=== PATIENT | female | born 1930 | race Caucasian/White ===

== ENCOUNTER 2016-10-18 20:35 | Inpatient (IN) | payer OTHER, MEDICARE ==
[~2016-10-18] VITALS: Ht 167.6 cm; Wt 67.1 kg
--- NOTE | 2016-10-18 21:32 | ED NECK/BACK PAIN COMPLAINT ---
See Addendum History of Present Illness General Chief Complaint: General Adult Stated Complaint: BIBA BACK AND HIP PAIN Source: patient Exam Limitations: no limitations Vital Signs & Intake/Output Vital Signs & Intake/Output Vital Signs Date Time Temp Pulse Resp B/P B/P Pulse O2 O2 Flow FiO2 Mean Ox Delivery Rate 10/19 2035 178/90 ED Intake and Output 10/19 0000 10/18 1200 Intake Total 0 Output Total Balance 0 Intake, Oral 0 Patient 148 lb Weight Weight Estimated Measurement Method Allergies Coded Allergies: MDX - Penicillin (Penicillin) (RASH 12/20/13) MDX - Sulfonamide (Sulfonamide) (RASH 12/20/13) Triage Note: PT BIBA FROM HOME WITH COMPLAINTS OF LEFT HIP PAIN AND BACK PAIN. PT HAS HISTORY OF SCIATICA AND HIP SURGERY, BUT DENIES ANY RECENT TRAUMA. PT ARRIVES ALERT BUT FORGETFUL TO WHEN SHE LAST TOOK HER MEDICATIONS. PT HAS HOME HEALTH AIDE AT HOME BUT WOULD LIKE TO LOOK INTO ASSISTED LIVING FACILITIES. Triage Nurses Notes Reviewed? yes Onset: Gradual Duration: constant, getting worse Timing: recent history Quality/Severity: severe Location: paraspinous muscles Radiation: none HPI: Patient is a 86-year-old female with a past medical history of Parkinson's, chronic back,SCIATICA and the left hip pain status post remote history of left hip replacement performed by Dr. MARTINEZ, anxiety, mood disorder who presents emergency room brought in by ambulance for concerns of lumbar spine pain and left hip pain. Patient states that she has chronic left hip pain and low back pain and scoliosis where she uses a walker for assistance with ambulation where she states that today the aid presented and helped her at her private residence where she lives alone however she states that she lied down and uncomfortable position and was unable to get out of bed because of the pain to her hip and her back. Patient needed a of her neighbors to lift her up however they were concerned of patient's well-being and advised patient to present to the emergency room for further evaluation treatment. Patient denies any trauma denies any recent falls. Patient denies any fever chills headache abdominal pain nausea vomiting dysuria hematuria shortness of breath cough chest pain. She does not recall the last tramadol she took last bowel movement was 3 days ago (MARGARETH TRINIDAD) Past History Travel History Traveled to [place] past 21 day No Medical History Any Pertinent Medical History? see below for history Neurological: Parkinson's disease Musculoskeletal: chronic back pain, sciatica Psychiatric: anxiety Surgical History Surgical History: LEFT HIP REPLACEMENT Psychosocial History What is your primary language Maori Tobacco Use: Never used ETOH Use: denies use Illicit Drug Use: denies illicit drug use Family History Hx Contributory? No (MARGARETH TRINIDAD) Review of Systems Review of Systems Constitutional: Reports: see HPI. Eyes: Reports: no symptoms. Ears, Nose, Throat, Mouth: Reports: no symptoms. Respiratory: Reports: no symptoms. Cardiovascular: Reports: no symptoms. Gastrointestinal/Abdominal: Reports: no symptoms. Musculoskeletal: Reports: see HPI, back pain, joint pain, joint swelling. Skin: Reports: no symptoms. Neurological/Psychological: Reports: no symptoms. All Other Systems: Reviewed and Negative (MARGARETH TRINIDAD) Physical Exam Physical Exam General Appearance: no apparent distress, alert, comfortable Neck: normal inspection, supple Comments: HEENT: Normal EENT exam, extraocular motion intact, no nystagmus. Pupils equally round and reactive to light and accommodation. Nose is atraumatic. External auditory canal and Tympanic membranes clear. Pharynx normal. No swelling or edema. Neck: Supple, no lymphadenopathy, normal range of motion without pain or tenderness Back: Noted scoliosis and right lateral muscular point tenderness noted no rash no vesicles Cardiovascular: Regular rate and rhythms no murmurs rubs or gallops, normal JVP Respiratory: Chest nontender. No respiratory distress.breath sounds clear to auscultation bilaterally Abdomen: Soft, nontender nondistended, no appreciable organomegaly. Normal bowel sounds. No ascites Extremity: No edema, no calf tenderness to palpation, normal and equal pulses. Left hip generalized point tenderness noted patient able to perform straight leg raise right knee normal inspection nontender Bilateral lower extremity dermatomes intact pedal pulse +2 Neuro: Alert oriented x3, motor sensory normal, Skin: No appreciable rash on exposed skin, skin is warm and dry. Psych: Mood and affect is normal, memory and judgment is normal. (MARGARETH TRINIDAD) Progress Differential Diagnosis: AAA, aortic dissection, C spine injury, carotid dissection, cauda equina syn, herniated disc, myofascial strain, pyelo/UTI, sciatica, spinal cord inj, thoracic outlet syn, T/L spine injury, ureterolithiasis Plan of Care: Orders Procedure Date/time Status Heart Healthy Diet 10/19 B Active PT Evaluate & Treat 10/19 0700 Active CASE MANAGEMENT CONSULT 10/19 0126 Active URINALYSIS 10/18 2128 Active COMPREHENSIVE METABOLIC PANEL 10/18 2128 Complete CBC WITHOUT DIFFERENTIAL 10/18 2128 Complete EKG 10/18 2128 Active Laboratory Tests 10/18/162207: Anion Gap 9, Estimated GFR > 60, BUN/Creatinine Ratio 46.0 H, Glucose 124 H, Calcium 9.1, Total Bilirubin 0.6, AST 18, ALT 35, Alkaline Phosphatase 69, Total Protein 6.6, Albumin 4.0, Globulin 2.6, Albumin/Globulin Ratio 1.5, CBC w Diff NO MAN DIFF REQ, RBC 4.39, MCV 97.0, MCH 32.1 H, RDW 14.9 H, MPV 7.2 L, Gran % 69.7, Lymphocytes % 21.2, Monocytes % 7.8, Eosinophils % 0.9, Basophils % 0.4, Absolute Granulocytes 6.4, Absolute Lymphocytes 1.9, Absolute Monocytes 0.7 H, Absolute Eosinophils 0.1, Absolute Basophils 0, PUBS MCHC 33.0 Patient currently is resting comfortably. No osseous injury noted on x-rays. Patient does live in a private residence by herself in which she is unsafe to return home in which patient will require a physical therapy consultation tomorrow in the a.m. DISCUSSED HANDOFF WITH Dr. Alcaraz (AYDEN APONTE,MARGARETH) Diagnostic Imaging: Viewed by Me: Radiology Read. Radiology Impression: no acute abnormality Comments: PATIENT: JEN ROCHA PRESENT AGE: 86 PATIENT ACCOUNT NO: [id number] : 31 LOCATION: [facility] ORDERING PHYSICIAN: MARGARETH APONTE SERVICE DATE: 10/18/16 EXAM TYPE: RAD - XRY-HIP 2-3 VIEWS, LEFT EXAMINATION: XR HIP, LEFT CLINICAL INFORMATION: Pain in left hip. COMPARISON: None TECHNIQUE: Two views of the left hip. FINDINGS: A left hip prosthesis is in place and normally seated within the acetabulum. The femoral stem portion is normally oriented within the intramedullary portion of the femur. No abnormal periprosthetic lucency is seen. No fracture or dislocation is identified. There are mild degenerative changes in the symphysis pubis and left SI joint. The soft tissues are unremarkable. IMPRESSION: Normal alignment of the patient's left hip prosthesis. No fracture or dislocation. DICTATED BY: PRINCE SANTILLAN MD DATE/TIME DICTATED:10/18/162211 PATIENT: JEN ROCHA PRESENT AGE: 86 PATIENT ACCOUNT NO: [id number] : 31 LOCATION: ER ORDERING PHYSICIAN: MARGARETH APONTE SERVICE DATE: 10/18/16 EXAM TYPE: RAD - XRY-LUMBOSACRAL SPINE AP & LAT EXAMINATION: XR LUMBOSACRAL SPINE CLINICAL INFORMATION: Chronic low back pain. COMPARISON: MRI dated 03/28/2013. TECHNIQUE: AP and lateral views of the lumbosacral spine were obtained. FINDINGS: There is a severe rightward convex scoliotic curvature of the lumbar spine. Extensive multilevel disc space narrowing is noted. There is an age indeterminate mild superior endplate compression fracture deformity at the L4 level which was not present on the prior MRI study from 2012. Multilevel facet arthropathy is evident. Calcifications in the pelvis may be due to underlying fibroids. A left hip prosthesis is partially visualized. There are [id number] degenerative changes in the right hip. IMPRESSION: Severe lumbar spondylosis and rightward scoliotic curvature with multilevel facet arthropathy. Evaluation limited due to severity of scoliosis. Mild superior endplate compression deformity at the L4 level is age indeterminate. If there is concern for acute compression fracture, suggest correlation follow-up MRI. Suspected calcified uterine fibroids in the pelvis. DICTATED BY: PRINCE SANTILLAN MD PATIENT: JEN ROCHA PRESENT AGE: 86 PATIENT ACCOUNT NO: [id number] : 31 LOCATION: ER ORDERING PHYSICIAN: MARGARETH APONTE SERVICE DATE: 10/18/16 EXAM TYPE: RAD - [id number] VIEW EXAMINATION: XR ABDOMEN CLINICAL INDICATION: Constipation. COMPARISON: None TECHNIQUE: AP view of the abdomen. FINDINGS: No air-fluid levels are seen. The bowel gas pattern is nonobstructive. No free air is identified. There is a moderate amount stool in the colon. Significant scoliotic curvature of the thoracolumbar spine as detailed on the lumbar x-ray study. The lung bases are clear. Moderate degenerative changes of the right hip. IMPRESSION: No evidence of bowel obstruction. Moderate amount of stool in the colon. (MARGARETH TRINIDAD) Hand-Off Endorsed To: REBECCA MD,ROBERTO Endorsed Time: 0700 Pending: consult (BLAYNE MORRIS,HYACINTH Santoro) Departure Departure Disposition: STILL A PATIENT Condition: Stable Clinical Impression Primary Impression: Gait instability Secondary Impressions: Left hip pain, Low back pain Referrals: LINETTE VINCENT MD (PCP/Family) Departure Forms: Customer Survey General Discharge Information (MARGARETH TRINIDAD) PA/CROWNING INSPECTOR Co-Sign Statement Statement: ED Attending supervision documentation- [] I saw and evaluated the patient. I have also reviewed all the pertinent lab results and diagnostic results. I agree with the findings and the plan of care as documented in the PA's/CROWNING INSPECTOR's documentation. [X] I have reviewed the ED Record and agree with the PA's/CROWNING INSPECTOR's documentation. [] Additions or exceptions (if any) to the PAs/CROWNING INSPECTOR's note and plan are summarized below: [] (BLAYNE MORRIS,HYACINTH Santoro)
[2016-10-18 22:15] LABS: ABSOLUTE BASOPHIL COUNT 0 /CUMM (0.0-0.2); ABSOLUTE EOSINOPHIL COUNT 0.1 /CUMM (0.0-0.7); ABSOLUTE GRANULOCYTE CT 6.4 /CUMM (1.4-6.5); ABSOLUTE LYMPH COUNT 1.9 /CUMM (1.2-3.4); ABSOLUTE MONOCYTE COUNT 0.7 /CUMM (0.10-0.60); BASOPHIL % 0.4 % (0.0-2.0); EOSINOPHIL % 0.9 % (0-5); GRANULOCYTE % 69.7 % (42.2-75.2); HEMATOCRIT 42.6 % (37-47); MEAN CORPUSCULAR HGB 32.1 PG (27.0-31.0); MEAN PLATELET VOLUME 7.2 FL (7.4-10.4); PLATELET COUNT 251 /CUMM (130-400); RBC DISTRIBUTION WIDTH 14.9 % (11.5-14.5); RED BLOOD CELL CT 4.39 /CUMM (4.20-5.40); WHITE BLOOD CELL COUNT 9.1 /CUMM (4.8-10.8)
--- NOTE | 2016-10-18 22:15 | RADIOLOGY REPORT ---
EXAMINATION: XR LUMBOSACRAL SPINE CLINICAL INFORMATION: Chronic low back pain. COMPARISON: MRI dated 03/28/2013. TECHNIQUE: AP and lateral views of the lumbosacral spine were obtained. FINDINGS: There is a severe rightward convex scoliotic curvature of the lumbar spine. Extensive multilevel disc space narrowing is noted. There is an age indeterminate mild superior endplate compression fracture deformity at the L4 level which was not present on the prior MRI study from 2012. Multilevel facet arthropathy is evident. Calcifications in the pelvis may be due to underlying fibroids. A left hip prosthesis is partially visualized. There are [id number] degenerative changes in the right hip. IMPRESSION: Severe lumbar spondylosis and rightward scoliotic curvature with multilevel facet arthropathy. Evaluation limited due to severity of scoliosis. Mild superior endplate compression deformity at the L4 level is age indeterminate. If there is concern for acute compression fracture, suggest correlation follow-up MRI. Suspected calcified uterine fibroids in the pelvis.
--- NOTE | 2016-10-18 22:16 | RADIOLOGY REPORT ---
EXAMINATION: XR HIP, LEFT CLINICAL INFORMATION: Pain in left hip. COMPARISON: None TECHNIQUE: Two views of the left hip. FINDINGS: A left hip prosthesis is in place and normally seated within the acetabulum. The femoral stem portion is normally oriented within the intramedullary portion of the femur. No abnormal periprosthetic lucency is seen. No fracture or dislocation is identified. There are mild degenerative changes in the symphysis pubis and left SI joint. The soft tissues are unremarkable. IMPRESSION: Normal alignment of the patient's left hip prosthesis. No fracture or dislocation.
--- NOTE | 2016-10-18 22:18 | RADIOLOGY REPORT ---
EXAMINATION: XR ABDOMEN CLINICAL INDICATION: Constipation. COMPARISON: None TECHNIQUE: AP view of the abdomen. FINDINGS: No air-fluid levels are seen. The bowel gas pattern is nonobstructive. No free air is identified. There is a moderate amount stool in the colon. Significant scoliotic curvature of the thoracolumbar spine as detailed on the lumbar x-ray study. The lung bases are clear. Moderate degenerative changes of the right hip. IMPRESSION: No evidence of bowel obstruction. Moderate amount of stool in the colon.
[2016-10-19] MEDS ORDERED: CYCLOBENZAPRINE10 M1 PO (04:48)
[2016-10-19] MEDS ORDERED: ULTRAM50 M1 PO (04:48)
[2016-10-19] MEDS ORDERED: SERTRALINE HCL100 MG PO (11:51)
[2016-10-19] MEDS ORDERED: CLONAZEPAM0.5 M2 PO (11:51)
[2016-10-19] MEDS ORDERED: TRAMADOL HCL50 M1 PO (11:51)
[2016-10-19] MEDS ORDERED: GABAPENTIN100 M2 PO (11:52)
[2016-10-19] MEDS ORDERED: SPIRONOLACTONE25 M1 PO (11:52)
[2016-10-19] MEDS ORDERED: SINEMET 25-1001 EACH PO (11:53)
--- NOTE | 2016-10-19 12:26 | History & Physical ---
[facility] 10/19/16 1223: General Information and HPI MD Statement: I have seen and personally examined JEN REGALADO and documented this H&P. The patient is a 86 year old F who presented with a patient stated chief complaint of [weakness]. Source of Information: patient Exam Limitations: no limitations History of Present Illness: Mrs. Regalado is an 86 yo women with PMHx. of HTN, Parkinson's, lumbar scoliosis, left hip replacement, chronic back pain with sciatica on the Rt. side presented to ED with a c/o of weakness and increased left hip pain. Patient had worsening left hip pain over the last week, she had a history of hip replacement at November [address] Vargas at [facility], she also had left foot fracture afterword which request wearing boot for multiple weeks, she received physical therapy after her left hip fracture and she remains on a walker at her baseline activity, at her baseline she is not able to do ADL OR IADL, she had aid to help her with daily activity Tuesday through Tuesday: for 2 hours at a.m. and 2 hours at evening. After left hip replacement she follow-up with her orthopedist intermittently and she is scheduled to get epidural shots for pain management next week at November 25. She mentioned that today her pain is getting worse and she couldn't stand up even with help, she was afraid that left hip pin displaced, she also complained of fatigue and weakness so she decided to come to emergency department for more evaluation. She reports constipation, last bowel movement was 3 days ago, and she is incontinent for urine, she use a diaper. Patient denies any chest pain, fever, chills, shortness of breath, no loss of consciousness and no mechanical fall. Allergies/Medications Allergies: Coded Allergies: Penicillins (RASH 10/19/16) Sulfa (Sulfonamide Antibiotics) (RASH 10/19/16) Home Med list Carbidopa/Levodopa (Sinemet 25-100 MG Tablet) 25 MG-100 MG TABLET 1 TAB PO TID PARKINSONS (Reported) Clonazepam 0.5 MG TABLET 1 TAB PO QHS SLEEP (Reported) Gabapentin 100 MG CAPSULE 1 CAP PO PRN PRN PAIN (Reported) Sertraline HCl 100 MG TABLET 1 TAB PO DAILY ANTIDEPRESSANT (Reported) Spironolactone 25 MG TABLET 1 TAB PO DAILY HTN (Reported) Tramadol HCl 50 MG TABLET 1 TAB PO TIDPRN PAIN (Reported) Past History Travel History Traveled to [place] past 21 day No Medical History Neurological: Parkinson's disease Cardiovascular: hypertension Musculoskeletal: chronic back pain, sciatica Psychiatric: anxiety Surgical History Surgical History: LEFT HIP REPLACEMENT Past Family/Social History Psychosocial History Where do you live? Home Who Do You Live With? self Services at Home: Home Health Aide ETOH Use: denies use Illicit Drug Use: denies illicit drug use Living Will? no Functional Ability ADLs Needs Assist: dressing, eating, toileting, bathing. Ambulation: walker IADLs Needs Assist: shopping, housework, finances, food prep, telephone, transportation, medication admin. Review of Systems Review of Systems Constitutional: Reports: weakness. EENTM: Reports: no symptoms. Cardiovascular: Reports: no symptoms. Respiratory: Reports: no symptoms. GI: Reports: constipation. Genitourinary: Reports: see HPI. Musculoskeletal: Reports: see HPI, back pain, joint pain. Skin: Reports: no symptoms. Neurological/Psychological: Reports: no symptoms. Hematologic/Endocrine: Reports: no symptoms. Immunologic/Allergic: Reports: no symptoms. All Other Systems: Reviewed and Negative Exam & Diagnostic Data Last 24 Hrs of Vital Signs/I&O Vital Signs Date Time Temp Pulse Resp B/P B/P Pulse O2 O2 Flow FiO2 Mean Ox Delivery Rate 10/19 1229 98.0 77 20 160/80 98 Room Air 10/19 1040 98.1 78 20 180/80 96 Room Air 10/19 0927 98.2 76 20 174/82 97 Room Air 10/19 0721 98.1 80 20 170/80 98 Room Air 10/18 2036 178/90 Intake & Output 10/19 1600 10/19 0800 10/19 0000 Intake Total 120 0 Output Total 600 Balance -480 0 Intake, Oral 120 0 Output, Urine 600 Patient 148 lb Weight Weight Estimated Measurement Method Physical Exam General Appearance Alert, Oriented X3, Cooperative, Moderate Distress Skin No Rashes, No Breakdown, No Significant Lesion HEENT Atraumatic, PERRLA, EOMI, Mucous Membr. moist/pink Neck Supple, No JVD, No thryomegaly Lymphatic Axillary nl, Cervical nl Cardiovascular Normal S1, Normal S2, No Murmurs Lungs Clear to Auscultation, Normal Air Movement Abdomen Normal Bowel Sounds, Soft, No Tenderness Extremities +2 edema Vascular Normal Pulses, Pulses Symmetrical Last 24 Hrs of Labs/Dinesh: Laboratory Tests 10/19/16 0455: Urinalysis HEAVY H, Urine Color YEL, Urine Clarity HAZY H, Urine pH 6.5, Ur Specific [place] 1.015, Urine Protein NEG, Urine Ketones TRACE H, Urine Nitrite NEG, Urine Bilirubin NEG, Urine Urobilinogen 0.2, Ur Leukocyte Esterase NEG, Ur Microscopic SEDIMENT EXAMINED, Urine RBC 10-15 H, Urine WBC 1-3 H, Ur Epithelial Cells RARE, Urine Bacteria FEW H, Urine Mucus MOD H, Urine Hemoglobin SMALL H, Urine Glucose NEG 10/18/16 2208: Anion Gap 9, Estimated GFR > 60, BUN/Creatinine Ratio 46.0 H, Glucose 124 H, Calcium 9.1, Total Bilirubin 0.6, AST 18, ALT 35, Alkaline Phosphatase 69, Total Protein 6.6, Albumin 4.0, Globulin 2.6, Albumin/Globulin Ratio 1.5, CBC w Diff NO MAN DIFF REQ, RBC 4.39, MCV 97.0, MCH 32.1 H, RDW 14.9 H, MPV 7.2 L, Gran % 69.7, Lymphocytes % 21.2, Monocytes % 7.8, Eosinophils % 0.9, Basophils % 0.4, Absolute Granulocytes 6.4, Absolute Lymphocytes 1.9, Absolute Monocytes 0.7 H, Absolute Eosinophils 0.1, Absolute Basophils 0, PUBS MCHC 33.0 Diagnostic Data Other Results Hip X-ray: IMPRESSION: Normal alignment of the patient's left hip prosthesis. No fracture or dislocation. Lumbar spine X-ray: IMPRESSION: Severe lumbar spondylosis and rightward scoliotic curvature with multilevel facet arthropathy. Evaluation limited due to severity of scoliosis. Mild superior endplate compression deformity at the L4 level is age indeterminate. If there is concern for acute compression fracture, suggest correlation follow-up MRI. Suspected calcified uterine fibroids in the pelvis. Abdominal X-ray: IMPRESSION: No evidence of bowel obstruction. Moderate amount of stool in the colon. Assessment/Plan Assessment: Mrs. Regalado is an 86 yo women with PMHx. of HTN, Parkinson's, lumbar scoliosis, left hip replacement, chronic back pain with sciatica on the Rt. side presented to ED with a c/o of weakness and increased left hip pain admitted for STR. Vitals, examination, labs and imaging as above Assessment: #Weakness and gait impairment 2/2 left hip pain, and chronic back pain in the setting of left hip replacement and chronic back pain 2/2 scoliosis #Hx/ of Parkinson's #Hx. of Hypertension #Constipation #Urinary incontenance Plan: -Will admitt the patient to general medicine floor -Physical therapy -She needs short-term rehabilitation -Case management consults -We'll continue spironolactone for blood pressure -We'll continue Sinemet for Parkinson's -We'll continue other home meds including psych medication -Pain management: We'll continue her home dose of tramadol and will add Tylenol as needed and Percocet as needed for severe pain, Lidoderm patch and muscle relaxant Flexrel -Bowel regimen for constipation -Patient refused IV -Heart healthy diet Lovenox for DVT prophylaxis Full code (with no heroic measure) In case of emergency she want her brother to be contacted: JEZSAIDA PARDO: [phone] As Ranked By This Provider Problem List: 1. Left hip pain 2. Low back pain 3. Gait instability Core Measures/Miscellaneous Acute Coronary Syndrome ACS Diagnosis: No Cerebrovascular Accident CVA/TIA Diagnosis: No Congestive Heart Failure CHF Diagnosis: No Venous Thromboembolism VTE Risk Factors: Acute medical illness, Age > 40 No [facility] VTE prophylaxis d/t: VTE low risk, No contraindications No VTE Pharm Prophylaxis d/t: No contraindications VTE Diagnosis: No VTE Type: NONE VTE Confirmed by (Test): NONE Severe Sepsis Severe Sepsis Present: No Septic Shock Septic Shock Present: No Miscellaneous Documentation Attending Case Discussed With: DUYEN SALEH MD Primary Care Physician: LINETTE VINCENT MD Patient sees these Specialists Orthopedist Level of Patient Care: General Medicine DUYEN SALEH MD 10/19/16 1440: Attending MD Review Statement Attending Statement Attending MD Statement: examined this patient, discuss w/resident/PA/STORAGE MANAGEMENT CONSULTANT, agreed w/resident/PA/STORAGE MANAGEMENT CONSULTANT, reviewed EMR data (avail) Attending Assessment/Plan: 86F PMH HTN, Parkinson's, lumbar scoliosis, left hip replacement, chronic back pain with sciatica on the Rt. side presenting with several days of progressive left hip pain and lower extremity weakness. No recent trauma, did not fall. Pain is constant and severe. Neurological exam is normal aside from mild weakness to the LLE which is likely limited by pain. X-rays show no evidence of fracture. Requires maximal assist of 2 for transferring and unable to ambulate due to pain and weakness. 1. Intractable left hip pain 2. LLE weakness 3. Unable to ambulate Plan - Admit to general medicine - Tylenol, Tramadol, Percocet for mild, moderate, severe pain respectively - Lidocaine patch - Can start Flexeril and monitor for sedation - PT eval - Continue home medications - DVT PPx - If new neurological symptoms or worsening of current symptoms will consider CT lumbar spine and hip to further evaluate
[2016-10-19 13:30] VITALS: BP 136/80
--- NOTE | 2016-10-19 14:07 | Cons- Medical ---
General Information and HPI Consulting Request Date of Consult: 10/19/16 Requested By: DUYEN SALEH MD Allergies/Medications Allergies: Coded Allergies: Penicillins (RASH 10/19/16) Sulfa (Sulfonamide Antibiotics) (RASH 10/19/16) Home Med List: Carbidopa/Levodopa (Sinemet 25-100 MG Tablet) 25 MG-100 MG TABLET 1 TAB PO TID PARKINSONS (Reported) Clonazepam 0.5 MG TABLET 1 TAB PO QHS SLEEP (Reported) Gabapentin 100 MG CAPSULE 1 CAP PO PRN PRN PAIN (Reported) Sertraline HCl 100 MG TABLET 1 TAB PO DAILY ANTIDEPRESSANT (Reported) Spironolactone 25 MG TABLET 1 TAB PO DAILY HTN (Reported) Tramadol HCl 50 MG TABLET 1 TAB PO TIDPRN PAIN (Reported) Past History Travel History Traveled to [place] past 21 day No Medical History Neurological: Parkinson's disease Cardiovascular: hypertension Musculoskeletal: chronic back pain, sciatica Psychiatric: anxiety Surgical History Surgical History: LEFT HIP REPLACEMENT Psychosocial History Where Do You Live? Home Who Do You Live With? self Services at Home: Home Health Aide ETOH Use: denies use Illicit Drug Use: denies illicit drug use Living Will? no Functional Ability ADLs Needs Assist: dressing, eating, toileting, bathing. Ambulation: walker IADLs Needs Assist: shopping, housework, finances, food prep, telephone, transportation, medication admin. Assessment/Plan Consult Acknowledgment - Thank you for your consult request.
--- NOTE | 2016-10-19 14:42 | Admission Certification ---
Admission Certification Certification Statement - As attending physician, I certify that at the time of - admission, based on clinical presentation, severity of - symptoms, need for further diagnostic testing and - therapeutic interventions, and risk of adverse outcomes - without in-hospital treatment, in my clinical assessment, - this patient requires an acute hospital stay for a minimum - of two nights or longer. I have also considered psychsocial - factors such as support system, advanced age, financial - issues, cognitive issues, and failed out-patient treatments, - past re-admission history, safety of patient, and lack of - compliance as applicable. Specific rationale supporting this admission is: Intractable back and hip pain, unable to ambulate and cannot transfer without assistance
[2016-10-19 22:07] VITALS: BP 153/86
--- NOTE | 2016-10-20 02:03 | Event Note ---
Event Note Event Note: Nurse told me that patient insists on getting extended release sinemet. She has not received a single dose of sinemet since she has been here. Pharmacy told me there is a controlled release form of sinemet. Patient is asleep now, will have the morning team clarify with the patient what she wants.
[2016-10-20 06:00] VITALS: BP 156/78
[2016-10-20 07:56] LABS: ABSOLUTE BASOPHIL COUNT 0 /CUMM (0.0-0.2); ABSOLUTE EOSINOPHIL COUNT 0.2 /CUMM (0.0-0.7); ABSOLUTE GRANULOCYTE CT 4.4 /CUMM (1.4-6.5); ABSOLUTE MONOCYTE COUNT 0.7 /CUMM (0.10-0.60); GRANULOCYTE % 55.4 % (42.2-75.2); MEAN CORPUSCULAR HGB 32.2 PG (27.0-31.0); MEAN CORPUSCULAR HGB CONC 33.2 G/DL (33.0-37.0); MEAN PLATELET VOLUME 7.6 FL (7.4-10.4); PLATELET COUNT 219 /CUMM (130-400); RBC DISTRIBUTION WIDTH 14.4 % (11.5-14.5); RED BLOOD CELL CT 3.97 /CUMM (4.20-5.40)
--- NOTE | 2016-10-20 08:18 | PN- Housestaff ---
CLEO YOUNG 10/20/16 0807: Subjective Follow-up For: 1. Intractable left hip pain 2. LLE weakness 3. Unable to ambulate Subjective: Patient seen and examined. Sleeping comfortably in bed, arousable. Slept well through the night, without any significant back pain. Patient states that her functional status has decreased a lot over the course of last 2 weeks. Ambulatory at baseline with a walker. States she is unsure if her pain has totally abated, as she hasn't moved much since admission. No CP, SOB, lightheadeness or dizziness. States being constipated, no abdominal pain or fevers. Review of Systems Constitutional: Reports: see HPI. Objective Last 24 Hrs of Vital Signs/I&O Vital Signs Date Time Temp Pulse Resp B/P B/P Pulse O2 O2 Flow FiO2 Mean Ox Delivery Rate 10/20 0600 97.9 70 16 156/78 96 Room Air 10/19 2207 98.3 78 20 153/86 95 10/19 1330 97.7 74 18 136/80 98 Room Air 10/19 1229 98.0 77 20 160/80 98 Room Air 10/19 1040 98.1 78 20 180/80 96 Room Air 10/19 0927 98.2 76 20 174/82 97 Room Air Intake & Output 10/20 1600 10/20 0800 10/20 0000 Intake Total 220 20 Output Total 150 Balance 70 20 Intake, Oral 220 20 Output, Urine 150 Physical Exam General Appearance: Alert, Oriented X3, Cooperative HEENT: Atraumatic Neck: Supple, No JVD Cardiovascular: Regular Rate, Normal S1, Normal S2 Lungs: Clear to Auscultation, Normal Air Movement Abdomen: Normal Bowel Sounds, Soft, No Tenderness Neurological: Normal Speech, Strength at 5/5 X4 Ext Extremities: No Clubbing, No Cyanosis, No Edema Current Medications: Current Medications Sig/Shalini Start time Last Medication Dose Route Stop Time Status Admin Acetaminophen 650 MG Q6P PRN 10/19 1245 AC 10/19 PO 225 Carbidopa/Levodopa 1 TAB TID 10/19 1600 AC PO Clonazepam 0.5 MG AT BEDTIME PRN 10/19 2200 AC 10/20 PO 10/26 2159 0241 Cyclobenzaprine HCl 5 MG BID 10/19 2199 AC 10/19 PO 225 Cyclobenzaprine HCl 10 MG 4 TIMES/DAY PRN 10/19 0500 AC 10/19 PO 0500 Docusate Sodium 100 MG BID 10/19 2200 AC 10/19 PO 2102 Enoxaparin Sodium 40 MG DAILY 10/20 1000 AC SC Gabapentin 100 MG DAILY PRN 10/20 1000 AC PO Ibuprofen 400 MG Q6P PRN 10/19 1615 AC PO Lidocaine 1 PAT DAILY 10/19 1601 AC EXT Oxycodone/ 1 TAB Q6P PRN 10/19 1245 AC Acetaminophen PO Polyethylene Glycol 17 GM AT BEDTIME 10/19 2200 AC 10/19 PO 210 Sertraline HCl 100 MG DAILY 10/20 1000 AC PO Spironolactone 25 MG DAILY 10/20 1000 DC PO Spironolactone 25 MG DAILY 10/19 1345 AC 10/19 PO 1723 Tramadol HCl 50 MG TIDPRN 10/19 1230 AC PO Tramadol HCl 0 .STK-MED ONE 10/19 1200 DC PO Tramadol HCl 50 MG Q4 PRN 10/19 0500 AC 10/19 PO 1158 Last 24 Hrs of Lab/Dinesh Results Last 24 Hrs of Labs/Mics: Laboratory Tests 10/20/16 0600: Anion Gap 7, Estimated GFR > 60, BUN/Creatinine Ratio 36.0 H, CBC w Diff Pending, WBC Pending, RBC Pending, Hgb Pending, Hct Pending, MCV Pending, MCH Pending, RDW Pending, Plt Count Pending, MPV Pending, PUBS MCHC Pending Assessment/Plan Assessment: 86 year old woman with parkinson's ds, ambultion with walker at baseline, with decrease in functional status, secondary to intractable back pain, in the setting of no bowel/bladder incontinence or neuro deficits, requires extensive physical therapy to regain her strength back. 1. Back pain: Imaging tests reviewed. Maintain current pain regimen. Continue to monitor. PT. 2. Constipation: Aggressive bowel regimen. 3. History of Parkinson's : Continue Sinemet and other meds. Full code Heart healthy diet DVT prophylaxis with Lovenox Problem List: 1. Low back pain Pain Ratin (without ambulation) Pain Location: Back Pain Goal: Pain 7 or less Pain Plan: Tylenol, Tramadol, Percocet. Tomorrow's Labs & Rationales: Not needed. 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 side presenting with several days of progressive left hip pain and lower extremity weakness. No recent trauma, did not fall. Pain is constant and severe. Neurological exam is normal aside from mild weakness to the LLE which is likely limited by pain. X-rays show no evidence of fracture. Requires maximal assist of 2 for transferring and unable to ambulate due to pain and weakness. 1. Intractable left hip pain 2. LLE weakness 3. Unable to ambulate Plan - Continue on general medicine - Tylenol, Tramadol, Percocet for mild, moderate, severe pain respectively - Lidocaine patch - Can start Flexeril and monitor for sedation - PT eval - Continue home medications - DVT PPx - If new neurological symptoms or worsening of current symptoms will consider CT lumbar spine and hip to further evaluate
[2016-10-20 08:27] LABS: ABSOLUTE LYMPH COUNT 2.6 /CUMM (1.2-3.4); BASOPHIL % 0.5 % (0.0-2.0); EOSINOPHIL % 2.3 % (0-5); HEMATOCRIT 38.5 % (37-47); MEAN CORPUSCULAR VOLUME 97.1 FL (81.0-99.0)
[2016-10-20 14:35] VITALS: BP 132/76
--- NOTE | 2016-10-20 14:59 | Discharge Summary ---
See Addendum Visit Information Visit Dates Admission Date: 10/19/16 Discharge Date: 10/22/16 Hospital Course Course Attending Physician: DUYEN SALEH MD Primary Care Physician: MELISA MORRIS,[facility] Course: 86-year-old woman with past medical history of hypertension, Parkinson's disease , lumbar scoliosis, left hip replacement, chronic back pain with sciatica on the right side resented to the [facility] ED on 10/19/2016 with several days of progressive left hip pain and lower extremity weakness. At that time, patient denied any recent trauma or falls. She described the pain as constant and severe. In the ED, patient's vitals remained within normal limits. On neurological exam , patient had mild weakness to the left lower extremity, possibly secondary to pain. X-rays obtained showed no evidence of fracture. It was further noted that the patient was requiring maximal assist of 2 for transferring and was unable to ambulate secondary to pain and weakness. The patient was admitted to general medicine floor for intractable left hip pain and lower left extremity weakness. Patient was provided with optimal pain control. Patient will be sent home with prescriptions for pain medications and muscle relaxants. Physical therapy consult was obtained and it was decided that the patient would benefit from short-term rehabilitation placement to regain her lost strength back. Allergies: Coded Allergies: Penicillins (RASH 10/19/16) Sulfa (Sulfonamide Antibiotics) (RASH 10/19/16) Disposition Summary Disposition Principal Diagnosis: Intractable left hip pain Additional Diagnosis: Left lower extremity weakness Discharge Disposition: short-term rehabilitation Discharge Instructions General Discharge Information Code Status: Full Code Patient's Diet: Heart healthy diet Patient's Activity: Discharge to short-term rehabilitation, return to baseline. Follow-Up Instructions/Appts: Please follow-up with primary care physician as an outpatient in 1-2 weeks. Medications at Discharge Discharge Medications: Continue taking these medications: Sertraline HCl (Sertraline HCl) 100 MG TABLET 1 Tablet ORAL DAILY Qty = 30 Tramadol HCl (Tramadol HCl) 50 MG TABLET 1 Tablet ORAL THREE TIMES A DAY NEEDED Qty = 60 Clonazepam (Clonazepam) 0.5 MG TABLET 1 Tablet ORAL TAKE AT BEDTIME Qty = 60 Gabapentin (Gabapentin) 100 MG CAPSULE 1 Capsule ORAL NEEDED as needed for PAIN Qty = 90 Spironolactone (Spironolactone) 25 MG TABLET 1 Tablet ORAL DAILY Carbidopa/Levodopa (Sinemet 25-100 MG Tablet) 25 MG-100 MG TABLET 1 Tablet ORAL THREE TIMES DAILY Start taking the following new medications: Lidocaine (Lidoderm) 5 % ADH..PATCH 1 Patch ON SKIN DAILY Qty = 10 No Refills Cyclobenzaprine HCl (Cyclobenzaprine HCl) 5 MG TABLET 5 Milligram ORAL TWICE DAILY Qty = 30 No Refills Copies To: MELISA MORRIS,LINETTE Attending MD Review Statement Documenting Attending: DUYEN SALEH MD
[2016-10-20 22:59] VITALS: BP 162/92
[2016-10-21 06:00] VITALS: BP 144/66
--- NOTE | 2016-10-21 09:25 | PN- Housestaff ---
See Addendum Subjective Follow-up For: 1. Intractable left hip pain 2. LLE weakness 3. Unable to ambulate Subjective: Left hip pain improved as long as she doesn't move. Hasn't worked much with PT, as they come at around 8 am and she is still sleepy. No CP, SOB, lightheadeness or dizziness. States being constipated, no abdominal pain or fevers. Review of Systems Constitutional: Reports: see HPI. Objective Last 24 Hrs of Vital Signs/I&O Vital Signs Date Time Temp Pulse Resp B/P B/P Pulse O2 O2 Flow FiO2 Mean Ox Delivery Rate 10/21 599 98.4 87 18 144/66 96 Room Air 10/20 2259 98.2 91 20 162/92 94 Room Air 10/20 1505 Room Air 10/20 1435 97.5 81 20 132/76 95 Intake & Output 10/21 1600 10/21 0800 10/21 0000 Intake Total 200 360 Output Total Balance 200 360 Intake, Oral 200 360 Number 0 Bowel Movements Physical Exam General Appearance: Alert, Oriented X3, Cooperative Cardiovascular: Regular Rate, Normal S1, Normal S2 Lungs: Clear to Auscultation, Normal Air Movement Abdomen: Normal Bowel Sounds, Soft Neurological: Unchanged Extremities: No Clubbing, No Cyanosis, No Edema Current Medications: Current Medications Sig/Shalini Start time Last Medication Dose Route Stop Time Status Admin Acetaminophen 650 MG Q6P PRN 10/19 1245 AC 10/19 PO 2252 Carbidopa/Levodopa 1 TAB TID 10/19 1600 AC 10/21 PO 0851 Clonazepam 0.5 MG AT BEDTIME PRN 10/19 2200 AC 10/20 PO 10/26 2159 2246 Cyclobenzaprine HCl 5 MG BID 10/19 2200 AC 10/21 PO 0851 Cyclobenzaprine HCl 10 MG 4 TIMES/DAY PRN 10/19 0500 AC 10/19 PO 0500 Docusate Sodium 100 MG BID 10/19 2200 AC 10/21 PO 0851 Enoxaparin Sodium 40 MG DAILY 10/20 1000 AC 10/21 SC 0852 Gabapentin 100 MG DAILY PRN 10/20 1000 AC PO Ibuprofen 400 MG Q6P PRN 10/19 1615 AC 10/20 PO 1022 Lidocaine 1 PAT DAILY 10/19 1601 AC 10/21 EXT 0852 Ondansetron HCl 4 MG ONCE ONE 10/20 1315 DC PO 10/20 1316 Oxycodone/ 1 TAB Q6P PRN 10/19 1245 AC Acetaminophen PO Patient Medication 1 ED .STK-MED ONE 10/20 1442 DC Teaching ED 10/20 1443 Polyethylene Glycol 17 GM DAILY 10/21 1000 UNVr PO Polyethylene Glycol 17 GM AT BEDTIME 10/19 2200 AC 10/20 PO 2104 Senna/Docusate Sodium 1 TAB BID 10/21 1000 UNVr PO Sertraline HCl 100 MG DAILY 10/20 1000 AC 10/21 PO 0851 Spironolactone 25 MG DAILY 10/19 1345 AC 10/21 PO 0851 Tramadol HCl 50 MG TIDPRN 10/19 1230 DC PO Tramadol HCl 50 MG Q4 PRN 10/19 0500 AC 10/20 PO 2247 Assessment/Plan Assessment: 86 year old woman with parkinson's ds, ambultion with walker at baseline, with decrease in functional status, secondary to intractable back pain, in the setting of no bowel/bladder incontinence or neuro deficits, requires extensive physical therapy to regain her strength back. 1. Back pain: Continue current pain regimen. Continue to monitor. PT. OOB to chair. 2. Constipation: Aggressive bowel regimen. 3. History of Parkinson's : Continue Sinemet and other meds. 4. Weakness: PT. Change diet to regular, gluten free, per patient request. Discharge to STR. Start ensure. Other causes ruled out. Disposition: Patient [facility], and would not want to go to these places based on her previous experiences. Will discuss with case management. Full code Heart healthy diet DVT prophylaxis with Lovenox Problem List: 1. Low back pain Pain Ratin Pain Location: Left hip Pain Goal: Remain pain free Pain Plan: Tylenol Tramadol Tomorrow's Labs & Rationales: Not needed
[2016-10-21] MEDS ORDERED: LIDODERM1 EACH EXT (09:42)
[2016-10-21] MEDS ORDERED: CYCLOBENZAPRINE5 M2 PO (14:03)
--- NOTE | 2016-10-21 14:04 | Patient Discharge Instructions ---
Discharge Instructions General Discharge Information You were seen/treated for: Left leg weakness Watch for these problems: Worsening leg weakness, numbness, tingling, and ambulation Worsening bowel/bladder incontinence Special Instructions: Please follow up with PCP in 1-2 weeks of discharge. Diet Continue normal diet: Yes Activity Full Activity/No Limits: Yes Acute Coronary Syndrome Inclusion Criteria At DC or during hospital stay patient has or had the following: ACS DIAGNOSIS No Discharge Core Measures Meds if any: Prescribed or Continued at Discharge Meds if any: NOT Prescribed or Continued at Discharge Congestive Heart Failure Inclusion Criteria At DC or during hospital stay patient has or had the following: CHF DIAGNOSIS No Discharge Core Measures Meds if any: Prescribed or Continued at Discharge Meds if any: NOT Prescribed or Continued at Discharge Cerebrovascular accident Inclusion Criteria At DC or during hospital stay patient has or had the following: CVA/TIA Diagnosis No Discharge Core Measures Meds if any: Prescribed or Continued at Discharge Meds if any: NOT Prescribed or Continued at Discharge Venous thromboembolism Inclusion Criteria VTE Diagnosis No VTE Type NONE VTE Confirmed by (Test) NONE Discharge Core Measures - Per Current guidelines, there needs to be overlap - treatment for the first 5 days of Warfarin therapy. - If discharged on Warfarin prior to 5 days of - overlap therapy, the patient will need to be - assessed for post discharge needs including - *Post discharge parental anticoagulation - *Warfarin and/or parental anticoagulation education - *Follow up date to check INR post discharge At least 5 days overlap therapy as Inpatient No Meds if any: Prescribed or Continued at Discharge Note: Overlap Therapy is Warfarin and Anticoagulant Meds if any: NOT Prescribed or Continued at Discharge
[2016-10-21 14:31] VITALS: BP 130/60
[2016-10-21 22:40] VITALS: BP 126/78
[2016-10-22 06:50] VITALS: BP 126/60
--- NOTE | 2016-10-22 10:27 | PN- Housestaff ---
Subjective Follow-up For: 1. Intractable left hip pain 2. LLE weakness 3. Unable to ambulate Subjective: Leg pain at baseline. Tried ambulating with PT. Had bowel movement yesterday, complains of mild pain in right hip area, which he attributes to straining during bowel movement. Review of Systems Constitutional: Reports: see HPI. Objective Last 24 Hrs of Vital Signs/I&O Vital Signs Date Time Temp Pulse Resp B/P B/P Pulse O2 O2 Flow FiO2 Mean Ox Delivery Rate 10/22 0650 97.3 67 18 126/60 97 Room Air 10/21 2240 98.3 85 20 126/78 95 Room Air 10/21 1431 97.8 72 18 130/60 97 Room Air Intake & Output 10/22 1600 10/22 0800 10/22 0000 Intake Total 120 30 Output Total 300 1 Balance -180 29 Intake, Oral 120 30 Number 1 Bowel Movements Output, Stool 1 Output, Urine 300 Physical Exam General Appearance: Alert, Oriented X3, Cooperative Cardiovascular: Regular Rate, Normal S1, Normal S2 Lungs: Clear to Auscultation, Normal Air Movement Abdomen: Normal Bowel Sounds, Soft, No Tenderness Extremities: No Clubbing, No Cyanosis, No Edema, the right hip examined, normal range of motion. No pain on palpation. No bruises noted. Current Medications: Current Medications Sig/Shalini Start time Last Medication Dose Route Stop Time Status Admin Acetaminophen 650 MG .STK-MED ONE 10/22 0112 DC PO 10/22 0113 Acetaminophen 650 MG Q6P PRN 10/19 1245 AC 10/22 PO 0111 Carbidopa/Levodopa 1 TAB TID 10/19 1600 AC 10/22 PO 0928 Clonazepam 0.5 MG AT BEDTIME PRN 10/19 2200 AC 10/22 PO 10/26 2159 0107 Cyclobenzaprine HCl 5 MG BID 10/19 220 AC 10/22 PO 0932 Cyclobenzaprine HCl 10 MG 4 TIMES/DAY PRN 10/19 0500 AC 10/19 PO 0500 Docusate Sodium 100 MG BID 10/19 2200 AC 10/22 PO 0928 Enoxaparin Sodium 40 MG DAILY 10/20 1000 AC 10/22 SC 0929 Gabapentin 100 MG DAILY PRN 10/20 1000 AC PO Ibuprofen 400 MG Q6P PRN 10/19 1615 AC 10/21 PO 1423 Lidocaine 1 PAT DAILY 10/19 1601 AC 10/21 EXT 0852 Oxycodone/ 1 TAB Q6P PRN 10/19 1245 AC Acetaminophen PO Polyethylene Glycol 17 GM DAILY 10/21 1000 AC 10/21 PO 1209 Polyethylene Glycol 17 GM AT BEDTIME 10/19 2200 AC 10/21 PO 2105 Senna/Docusate Sodium 1 TAB BID 10/21 1000 AC 10/22 PO 0928 Sertraline HCl 100 MG DAILY 10/20 1000 AC 10/22 PO 0928 Simethicone 40 MG ONCE ONE 10/22 0830 DC PO 10/22 0831 Spironolactone 25 MG DAILY 10/19 1345 AC 10/22 PO 0928 Tramadol HCl 50 MG Q4 PRN 10/19 0500 AC 10/22 PO 0936 Assessment/Plan Assessment: 86 year old woman with parkinson's ds, ambultion with walker at baseline, with decrease in functional status, secondary to intractable back pain, in the setting of no bowel/bladder incontinence or neuro deficits, requires extensive physical therapy to regain her strength back. 1. Back pain: Continue current pain regimen. Continue to monitor. PT. OOB to chair. 2. Constipation: Aggressive bowel regimen. 3. History of Parkinson's : Continue Sinemet and other meds. 4. Weakness: PT. Change diet to regular, gluten free, per patient request. Discharge to STR. Start ensure. Other causes ruled out. Disposition: [facility], late in afternoon. Full code Heart healthy diet DVT prophylaxis with Lovenox Problem List: 1. Low back pain Pain Ratin Pain Location: Left hip Right hip Pain Goal: Remain pain free Pain Plan: Tylenol Tramadol Tomorrow's Labs & Rationales: Not needed
[2016-10-22 13:01] VITALS: BP 126/60
== END 2016-10-22 14:31 | DRG 556 ==
LOC: ERH 20:35 → ERHI 10-19 10:57 → 2NA 10-19 10:57 → ENRESERV 10-19 11:41 → ERHI 10-19 12:06 → ENTRNSPT 10-19 12:21 → EDTRNSPTSTS 10-19 13:02 → 2NA 10-19 13:06 → CMPTRNSPT 10-19 13:16 → ENPENDDIS 10-22 10:41 → 2NA 10-22 14:31
PROVIDERS: Physician Assistant; Student in an Organized Health Care Education/Training Program; ADMIT Internal Medicine
DX: M25.552 Pain in left hip (principal); G20 Parkinson's disease; R32 Unspecified urinary incontinence; K59.00 Constipation, unspecified; R26.9 Unspecified abnormalities of gait and mobility; M41.86 Other forms of scoliosis, lumbar region; M54.41 Lumbago with sciatica, right side; I10 Essential (primary) hypertension
CPT/HCPCS: 2NASP; 72100; 73502-LT; 74000; 81001; 82436; 87086; 93005; 93010; 97161-GP; 97530-GO; J1650; J3101

== ENCOUNTER 2017-12-18 17:11 | Emergency (ER) | payer OTHER, MEDICARE ==
[~2017-12-18] VITALS: Ht 160 cm; Wt 49.9 kg
[~2017-12-18 17:11] MED LIST: CLONAZEPAM0.5 M2 PO; CYCLOBENZAPRINE10 M1 PO; CYCLOBENZAPRINE5 M2 PO; GABAPENTIN100 M2 PO; LIDODERM1 EACH EXT; SERTRALINE HCL100 MG PO; SINEMET 25-1001 EACH PO; SPIRONOLACTONE25 M1 PO; TRAMADOL HCL50 M1 PO; ULTRAM50 M1 PO
--- NOTE | 2017-12-18 18:04 | ED GENERAL ADULT ---
History of Present Illness General Chief Complaint: General Adult Stated Complaint: LEFT SHOULDER AND LEFT THORACIC AREA PAIN Source: patient Exam Limitations: no limitations Vital Signs & Intake/Output Vital Signs & Intake/Output Vital Signs Date Time Temp Pulse Resp B/P B/P Pulse O2 O2 Flow FiO2 Mean Ox Delivery Rate 12/18 2117 98.4 95 16 148/80 96 Room Air 12/18 1939 98.0 88 16 156/76 96 Room Air 12/18 1717 98.6 94 18 167/75 96 Room Air ED Intake and Output 12/19 0000 12/18 1200 Intake Total 240 Output Total 600 Balance -360 Intake, Oral 240 Output, Urine 600 Patient 110 lb Weight Weight Reported by Patient Measurement Method Allergies Coded Allergies: Penicillins (RASH 10/19/16) Sulfa (Sulfonamide Antibiotics) (RASH 10/19/16) Reconcile Medications Acetylcysteine (A-Puebwb-X-Cysteine) 600 MG CAPSULE 1 CAP PO BID SUPPLEMENT ( Reported) Bupropion HCl (Wellbutrin XL) 300 MG TAB.ER.24H 1 TAB PO QHS DEPRESSION ( Reported) Carbidopa/Levodopa (Carbidopa-Levo ER 50-200 Tab) 50 MG-200 MG TABLET.ER 1 TAB PO TID PARKINSONS (Reported) Cholecalciferol (Vitamin D3) (Vitamin D) 5,000 UNIT TABLET 1 TAB PO DAILY SUPPLEMENT (Reported) Clonazepam 0.5 MG TABLET 1 TAB PO QHS SLEEP (Reported) Dicyclomine HCl 10 MG CAPSULE 1 CAP PO BID PRN ABD CRAMPS (Reported) Docusate Sodium (Colace) 100 MG CAPSULE 1 CAP PO BID PRN STOOL SOFTENER ( Reported) Entacapone 200 MG TABLET 1 TAB PO TID PARKINSONS (Reported) Glycerin ADULT SUPP.RECT 2 GM [place] AD PRN CONSTIPATION (Reported) Melatonin 3 MG TABLET 1 TAB PO QHS SLEEP (Reported) Mirabegron (Myrbetriq) 25 MG TAB.ER.24H 1 TAB PO DAILY BLADDER (Reported) Achille-3 Fatty Acids (Fish Oil Concentrate) 1,000 MG CAPSULE 2 CAP PO DAILY SUPPLEMENT (Reported) Rotigotine (Neupro) 2 MG/24 HOUR PATCH.TD24 1 PATCH TOP 0800 PARKINSONS ( Reported) Sertraline HCl 100 MG TABLET 1 TAB PO QAM ANTIDEPRESSANT (Reported) Spironolactone 25 MG TABLET 1.5 TAB PO DAILY HTN (Reported) Tramadol HCl 50 MG TABLET 1 TAB PO Q8H PRN PAIN (Reported) Tramadol HCl 50 MG TABLET 1-2 TAB PO BIDP PRN pain Ubiquinol 100 MG CAPSULE 300 MG PO DAILY SUPPLEMENT (Reported) Vit A/Vit C/Vit E/Zinc/Copper (Preservision Areds Tablet) 7,160-113 TABLET 1 TAB PO DAILY SUPPLEMENT (Reported) Vitamin B Complex 1 EACH CAPSULE 1 CAP PO DAILY SUPPLEMENT (Reported) Triage Note: 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 ACCORDING TO REPORT, WHEN PTT FIRST ARRIVED TO [facility], SHE WAS ABLE TO AMBULATE, BUT NO LONGER IS ABLE TO SECONDARY TO WORSENING PARKINSONS AND SCOLIOSIS. ACCORDING TO REPORT, THE NURSE AT THE FACILITY IS CONCERNED THAT PT IS NOW AT A RISK TO FALL OUT OF BED AT [facility] AND MAY NEED A HIGHER LEVEL OF CARE. Triage Nurses Notes Reviewed? yes Onset: Abrupt Duration: day(s): Timing: recent history Injury Environment: home Severity: moderate, severe HPI: 87-year-old female comes into the emergency room for further evaluation of pain to her left rib and shoulder area. Patient reports that it hurts with any type of movement or lifting of her arm. She has a history of Parkinson's disease. She denies any falls or trauma. She denies any fever chills cough shortness of breath diaphoresis. She has a chronic wound on her left foot. Nothing seems to make the symptoms better. She comes in for further evaluation. Sent in from [facility]. (Bal Cleveland) Past History Travel History Traveled to [facility] past 21 day No Medical History Any Pertinent Medical History? see below for history Neurological: Parkinson's disease EENT: NONE Cardiovascular: hypertension Respiratory: NONE Gastrointestinal: NONE Hepatic: NONE Renal: NONE Musculoskeletal: chronic back pain, sciatica Psychiatric: anxiety Endocrine: NONE Blood Disorders: NONE Cancer(s): NONE AUTOMOTIVE INSTRUCTOR/Reproductive: NONE History of MRSA: No History of VRE: No History of CDIFF: No Surgical History Surgical History: LEFT HIP REPLACEMENT Psychosocial History Who do you live with Patient/Self Services at Home Home Health Aide What is your primary language Divehi Tobacco Use: Never used Family History Hx Contributory? No (Bal Cleveland) Review of Systems Review of Systems Constitutional: Reports: no symptoms. EENTM: Reports: no symptoms. Respiratory: Reports: no symptoms. Cardiovascular: Reports: no symptoms. GI: Reports: no symptoms. Genitourinary: Reports: no symptoms. Musculoskeletal: Reports: see HPI. Skin: Reports: no symptoms. Neurological/Psychological: Reports: no symptoms. Hematologic/Endocrine: Reports: no symptoms. Immunologic/Allergic: Reports: no symptoms. All Other Systems: Reviewed and Negative (Bal Cleveland) Physical Exam Physical Exam General Appearance: no apparent distress, alert, awake Head: atraumatic Eyes: Bilateral: normal appearance. Ears, Nose, Throat: normal ENT inspection, hearing grossly normal Neck: normal inspection Respiratory: normal breath sounds, no respiratory distress, CHEST WALL TENDERNESS LEFT SIDE Cardiovascular: regular rate/rhythm Gastrointestinal: soft, non-tender Back: normal inspection Extremities: normal inspection Neurologic/Psych: awake, alert, oriented x 3 Skin: intact, normal color Core Measures ACS in differential dx? No CVA/TIA Diagnosis: No Sepsis Present: No Sepsis Focused Exam Completed? No (Bal Cleveland) Progress Differential Diagnoses I considered the following diagnoses in my evaluation of the patient: Muscle strain, rib fracture, costochondritis, shingles, [place], pulmonary embolism, Plan of Care: Orders Procedure Date/time Status EKG 12/18 2124 Active URINALYSIS 12/19 1907 Complete D-DIMER 12/18 1802 Complete TROPONIN LEVEL 12/18 1801 Complete COMPREHENSIVE METABOLIC PANEL 12/18 1801 Complete CBC WITHOUT DIFFERENTIAL 12/18 1801 Complete EKG 12/18 1801 Active Laboratory Tests 12/18/172124: Troponin I Cancelled 12/18/171907: Urinalysis LIGHT H, Urine Color YEL, Urine Clarity CLEAR, Urine pH 6.5, Ur Specific [place] 1.020, Urine Protein NEG, Urine Ketones 15 H, Urine Nitrite NEG, Urine Bilirubin NEG, Urine Urobilinogen 0.2, Ur Leukocyte Esterase TRACE H , Ur Microscopic SEDIMENT EXAMINED, Urine WBC 3-5 H, Urine Hemoglobin NEG, Urine Glucose NEG 12/18/171822: Anion Gap 8, Estimated GFR > 60, BUN/Creatinine Ratio 25.0, Glucose 103 H, Calcium 9.2, Total Bilirubin 0.5, AST 14, ALT 20, Alkaline Phosphatase 65, Troponin I < 0.01, Total Protein 6.1 L, Albumin 3.6, Globulin 2.5, Albumin/ Globulin Ratio 1.4, D-Dimer High Sensitivty < 200, CBC w Diff NO MAN DIFF REQ, RBC 4.92, MCV 96.7, MCH 32.0 H, MCHC 33.0, RDW 14.4, MPV 7.3 L, Gran % 72.7, Lymphocytes % 19.6 L, Monocytes % 6.5, Eosinophils % 0.8, Basophils % 0.4, Absolute Granulocytes 8.0 H, Absolute Lymphocytes 2.2, Absolute Monocytes 0.7 H, Absolute Eosinophils 0.1, Absolute Basophils 0 Diagnostic Imaging: Viewed by Me: Radiology Read. Discussed w/RAD: Radiology Read. Radiology Impression: PATIENT: JEN ROCHA PRESENT AGE : 87 PATIENT ACCOUNT NO: [id number] : 31 LOCATION: [facility] ORDERING PHYSICIAN: Bal APONTE SERVICE DATE: 12/18/17 EXAM TYPE: RAD - XRY-PORTABLE CHEST XRAY EXAMINATION: XR CHEST PORTABLE CLINICAL INFORMATION: Left rib pain. COMPARISON: None TECHNIQUE: Portable frontal view of the chest was obtained. FINDINGS: Limited evaluation for rib fractures without dedicated rib series. Bone mineral density is also decreased which limits evaluation. No definite acute displaced rib fracture. The lungs are hypoinflated. Coarse lung markings. Streaky linear markings at the right lung base likely related to subsegmental atelectasis. No definite focal consolidation, pleural effusion or pneumothorax. Heart size is normal. Tortuosity, thoracic aorta. IMPRESSION: 1. Limited evaluation for rib fractures without dedicated rib series. No acute displaced rib fracture is identified on this single AP view of the chest. 2. The lungs are hypoinflated. No acute pulmonary process. DICTATED BY: Yusra Butler MD DATE/TIME DICTATED:12/18/171833 BOILER TECHNICIAN:SKY DATE/TIME TRANSCRIBED:12/18/171833 CONFIDENTIAL, DO NOT COPY WITHOUT APPROPRIATE AUTHORIZATION. <Electronically signed in Other Vendor System> SIGNED BY: Yusra Butler MD 12/18/17 8919 Initial ED EKG: normal sinus rhythm, rate (92), BORDERLINE T WAVE ABNORMALITIES (Alexandr APONTE,Bal) Departure Departure Disposition: HOME OR SELF CARE Condition: Stable Clinical Impression Primary Impression: Chest wall pain Referrals: An aM Romeo MD (PCP/Family) Additional Instructions: Take tramadol as needed for pain. You're refusing to stay for a second EKG and troponin to rule out any type of heart attack. You understand that a heart attack is potentially life-threatening and could kill you. Return if any other concerns worsening symptoms. Please go over all results of today's visit with your primary care doctor. Contact your primary care doctor to let them know you were here in the emergency room. There may be nonspecific findings which may not be related to your visit today here in the emergency room but may require further evaluation and chronic monitoring by your primary care doctor. If you had a laceration today the chance of foreign body always remains. You should follow-up with your primary care doctor for recheck in 3-5 days for a wound check. If you had an x-ray done there is a chance that a fracture could have been missed on initial read and you should follow-up with your primary care doctor for repeat x-rays if symptoms persist. If your blood pressure was elevated here in the emergency room please have rechecked by [facility] primary care doctor within the next 48. If you were prescribed a narcotic here in the emergency room or any type of controlled substances you're not allowed to drive while taking this medication or operate any type of heavy machinery. Narcotics can make you feel lightheaded dizziness nausea and can cause constipation. You may need to fruit picker machine operator a stool softener. Thank you for choosing [facility] emergency room. Please return to the emergency room immediately if you have any other concerns worsening of symptoms. Departure Forms: Customer Survey General Discharge Information Prescriptions: Current Visit Scripts Tramadol HCl 1-2 TAB PO BIDP PRN pain #10 TAB Comments 12/18/2017 10:05:02 PM Patient is alert and oriented 3 and able to make her own medical decisions. She refuses to stay for a second EKG and second troponin to rule out any type of acute coronary syndrome. Pain is reproducible worse with range of motion and I feel the pain is more consistent with muscular pain rather than cardiac pain however due to her age I felt it was pertinent for a second EKG and troponin and she declined. She was able to repeat back to me what she was refusing and understands that I cannot further rule out any type of cardiac event. Due to the fact that she does not want to stay for the second toe she'll be discharged back to her facility. She wanted to eat food while she was here. Spoke with the nursing model making supervisor over at her assisted living facility. Prescriptions sent for pain. They are aware that she is returning. Case was discussed with Dr. Alcaraz. (Bal Cleveland) PA/METAL BURRER Co-Sign Statement Statement: ED Attending supervision documentation- [] I saw and evaluated the patient. I have also reviewed all the pertinent lab results and diagnostic results. I agree with the findings and the plan of care as documented in the PA's/METAL BURRER's documentation. [x] I have reviewed the ED Record and agree with the PA's/METAL BURRER's documentation. [] Additions or exceptions (if any) to the PAs/METAL BURRER's note and plan are summarized below: [] (Kieran MORRIS,Sree Santoro) Critical Care Note Critical Care Note Critical Care Time: non-applicable (Bal Cleveland)
[2017-12-18 18:50] LABS: ABSOLUTE BASOPHIL COUNT 0 /CUMM (0.0-0.2); ABSOLUTE EOSINOPHIL COUNT 0.1 /CUMM (0.0-0.7); ABSOLUTE LYMPH COUNT 2.2 /CUMM (1.2-3.4); ABSOLUTE MONOCYTE COUNT 0.7 /CUMM (0.10-0.60); BASOPHIL % 0.4 % (0.0-2.0); EOSINOPHIL % 0.8 % (0-5); GRANULOCYTE % 72.7 % (42.2-75.2); HEMATOCRIT 47.6 % (37-47); MEAN CORPUSCULAR VOLUME 96.7 FL (81.0-99.0); MEAN PLATELET VOLUME 7.3 FL (7.4-10.4); PLATELET COUNT 282 /CUMM (130-400); RBC DISTRIBUTION WIDTH 14.4 % (11.5-14.5); RED BLOOD CELL CT 4.92 /CUMM (4.20-5.40); WHITE BLOOD CELL COUNT 11.1 /CUMM (4.8-10.8)
--- NOTE | 2017-12-18 18:58 | RADIOLOGY REPORT ---
EXAMINATION: XR CHEST PORTABLE CLINICAL INFORMATION: Left rib pain. COMPARISON: None TECHNIQUE: Portable frontal view of the chest was obtained. FINDINGS: Limited evaluation for rib fractures without dedicated rib series. Bone mineral density is also decreased which limits evaluation. No definite acute displaced rib fracture. The lungs are hypoinflated. Coarse lung markings. Streaky linear markings at the right lung base likely related to subsegmental atelectasis. No definite focal consolidation, pleural effusion or pneumothorax. Heart size is normal. Tortuosity, thoracic aorta. IMPRESSION: 1. Limited evaluation for rib fractures without dedicated rib series. No acute displaced rib fracture is identified on this single AP view of the chest. 2. The lungs are hypoinflated. No acute pulmonary process.
[2017-12-18] MEDS ORDERED: MYRBETRIQ25 M1 PO (20:34)
[2017-12-18] MEDS ORDERED: ENTACAPONE200 M1 PO (20:36)
[2017-12-18] MEDS ORDERED: CARBIDOPA-LEVO1 EAC9 PO (20:36)
[2017-12-18] MEDS ORDERED: WELLBUTRIN XL300 M2 PO (20:37)
[2017-12-18] MEDS ORDERED: NEUPRO1 EACH TOP (20:38)
[2017-12-18] MEDS ORDERED: COLACE100 M1 PO (20:38)
[2017-12-18] MEDS ORDERED: MELATONIN3 M4 PO (20:39)
[2017-12-18] MEDS ORDERED: N-ACETYL-L-CYS600 M1 PO (20:39)
[2017-12-18] MEDS ORDERED: PRESERVISION A1 EACH PO (20:40)
[2017-12-18] MEDS ORDERED: FISH OIL CONC1000 M1 PO (20:40)
[2017-12-18] MEDS ORDERED: VITAMIN D5000 UNIT PO (20:41)
[2017-12-18] MEDS ORDERED: UBIQUINOL100 MG PO (20:41)
[2017-12-18] MEDS ORDERED: GLYCERIN1 EACH PR (20:42)
[2017-12-18] MEDS ORDERED: VITAMIN B COMP1 EACH PO (20:42)
[2017-12-18] MEDS ORDERED: DICYCLOMINE HCL10 M1 PO (20:44)
[2017-12-18] MEDS ORDERED: TRAMADOL HCL50 M1 PO ×2 (20:44→21:08)
[2017-12-18 21:17] VITALS: BP 148/80
== END 2017-12-18 23:43 ==
LOC: ERH 17:11
PROVIDERS: Physician Assistant Medical
DX: R07.89 Other chest pain (principal)
CPT/HCPCS: 71045; 81001; 93005; 93010